=== PATIENT | female | born 1990 | race Asian ===

== ENCOUNTER 2018-04-18 05:10 | Inpatient (IN) | payer SELFPAY ==
[2018-04-17 13:49] LABS: EOSINOPHILS % (AUTO) 0.6 % (0.0-4.0); HEMOGLOBIN 10.3 g/dL (12.0-16.0); LYMPHOCYTES # (AUTO) 1.3 K/uL (1.0-5.5)
[2018-04-17 13:54] LABS: BASOPHILS % (AUTO) 0.5 % (0.0-2.0); HEMATOCRIT 32.7 % (36-48); LYMPHOCYTES % (AUTO) 18.9 % (20.5-51.5); MEAN CORPUSCULAR HEMOGLOBIN 26 pg (27-31); MEAN CORPUSCULAR HGB CONC 31 % (32-36); MEAN CORPUSCULAR VOLUME 84 fL (79.0-98.0); MONOCYTES # (AUTO) 0.6 K/uL (0.0-1.0); MONOCYTES % (AUTO) 8.3 % (1.7-9.3); RED CELL DISTRIBUTION WIDTH 14.5 % (9.0-15.0); WHITE BLOOD COUNT (AUTO) 6.9 K/uL (4.8-10.8)
[2018-04-17 14:29] LABS: PLATELET COUNT (AUTO) 210 K/uL (130-430)
[2018-04-17 14:30] LABS: NEUTROPHILS % (AUTO) 71.7 % (40.0-70.0)
[2018-04-17 14:31] LABS: BILIRUBIN,URINE NEGATIVE (NEGATIVE); BLOOD, URINE NEGATIVE (NEGATIVE); CLARITY/URINE CLEAR (CLEAR); COLOR,URINE YELLOW (YELLOW); GLUCOSE,URINE NEGATIVE (NEGATIVE); KETONES,URINE NEGATIVE (NEGATIVE); LEUKOCYTE ESTERASE ,URINE TRACE (NEGATIVE); NITRITE, URINE NEGATIVE (NEGATIVE); PH,URINE 6.5 (5.0-8.0); PROTEIN URINE NEGATIVE (NEGATIVE); UROBILINOGEN,URINE 0.2 (0.2-1.0)
[2018-04-17 14:47] LABS: BACTERIA,URINE FEW /HPF (None Seen); RBC,URINE 0-3 /HPF (0-3)
[~2018-04-18] VITALS: Ht 163 cm; Wt 75.3 kg
[2018-04-18] MEDS ORDERED: LR 1,000 ML IV SCH ×2 (05:23→11:42)
[2018-04-18] MEDS ORDERED: CEFAZOLIN 2 GM IVPB PREMIX 50 ML IV ONE ×2 (05:30→07:30)
[2018-04-18 07:06] VITALS: BP_SYST 119
[2018-04-18] MEDS ORDERED: NS 1000 ML IV.SOLN IV ONE (07:30)
[2018-04-18] MEDS ORDERED: MORPHINE SULFATE 10MG/10ML PF AMP EP ONE (07:30)
[2018-04-18] MEDS ORDERED: OXYTOCIN/0.9 % SODIUM CHLORIDE 20 UNITS/1,000 ML BAG IV ONE (07:30)
[2018-04-18] MEDS ORDERED: LR 1,000 ML IV.SOLN IV ONE (07:30)
[2018-04-18 08:43] VITALS: BP_SYST 118
[2018-04-18] MEDS ORDERED: KETOROLAC TROMETHAMINE 60 MG/2 ML VIAL IM PRN (08:45)
[2018-04-18] MEDS ORDERED: DIPHENHYDRAMINE INJ 50 MG/ML VIAL IVP PRN (08:45)
[2018-04-18] MEDS ORDERED: MORPHINE SULFATE 10MG/10ML PF AMP SP SCH (08:45)
[2018-04-18] MEDS ORDERED: ONDANSETRON HCL 4 MG/2 ML VIAL IVP PRN (08:45)
[2018-04-18] MEDS ORDERED: fentaNYL CITRATE/PF 100 MCG/2 ML AMP IVP PRN ×2 (08:45)
[2018-04-18] MEDS ORDERED: NALOXONE HCL 0.4 MG/ML AMP (NARCAN) IVP PRN ×2 (08:45)
[2018-04-18] MEDS ORDERED: NALBUPHINE HCL 10 MG/ML AMP IVP PRN (08:45)
[2018-04-18] MEDS ORDERED: fentaNYL CITRATE/PF 100 MCG/2 ML AMP ONE (09:45)
[2018-04-18] MEDS ORDERED: OXYTOCIN/0.9 % SODIUM CHLORIDE 1,000 ML IV ONE ×2 (10:09→11:42)
[2018-04-18] MEDS ORDERED: LANOLIN 7 GM OINT. TP PRN (11:45)
[2018-04-18] MEDS ORDERED: SENNOSIDES/DOCUSATE SODIUM 1 TAB TABLET(SENOKOT-S) PO PRN (11:45)
[2018-04-18] MEDS ORDERED: BISACODYL 10 MG/SUPPOSITORY RC PRN (11:45)
[2018-04-18] MEDS ORDERED: ANUSOL 1 EA SUPP.RECT (PREPARATION H) RC PRN (11:45)
[2018-04-18] MEDS: KETOROLAC TROMETHAMINE 30 MG VIAL IVP PRN ×2 (15:07→21:10)
[2018-04-18] MEDS: CEFAZOLIN 1 GM IVPB PREMIX 50 ML IV SCH ×2 (15:08→21:08)
[2018-04-18] MEDS: SIMETHICONE 80 MG TAB.CHEW PO PRN (17:30)
[2018-04-18] MEDS ORDERED: TEMAZEPAM 15 MG CAPSULE PO PRN (21:00)
[2018-04-19] MEDS: KETOROLAC TROMETHAMINE 30 MG VIAL IVP PRN (02:53)
[2018-04-19] MEDS: CEFAZOLIN 1 GM IVPB PREMIX 50 ML IV SCH (02:54)
[2018-04-19] MEDS: IBUPROFEN 600 MG TABLET PO SCH ×4 (06:00→23:36)
[2018-04-19 06:58] LABS: BASOPHILS % (AUTO) 0.4 % (0.0-2.0); EOSINOPHILS % (AUTO) 0.3 % (0.0-4.0); HEMATOCRIT 26.4 % (36-48); HEMOGLOBIN 8.7 g/dL (12.0-16.0); LYMPHOCYTES # (AUTO) 1.4 K/uL (1.0-5.5); LYMPHOCYTES % (AUTO) 11.5 % (20.5-51.5); MEAN CORPUSCULAR HEMOGLOBIN 27 pg (27-31); MEAN CORPUSCULAR HGB CONC 33 % (32-36); MEAN CORPUSCULAR VOLUME 84 fL (79.0-98.0); MONOCYTES # (AUTO) 0.7 K/uL (0.0-1.0); MONOCYTES % (AUTO) 6.3 % (1.7-9.3); NEUTROPHILS # (AUTO) 9.7 K/uL (1.8-7.7); NEUTROPHILS % (AUTO) 81.5 % (40.0-70.0); PLATELET COUNT (AUTO) 172 K/uL (130-430); RED BLOOD CELL COUNT(AUTO) 3.17 MIL/uL (4.2-6.2); RED CELL DISTRIBUTION WIDTH 14.7 % (9.0-15.0); WHITE BLOOD COUNT (AUTO) 11.8 K/uL (4.8-10.8)
[2018-04-19] MEDS: DOCUSATE SODIUM 100 MG CAPSULE PO PRN (12:46)
[2018-04-19] MEDS: SIMETHICONE 80 MG TAB.CHEW PO PRN (12:46)
[2018-04-20] MEDS: IBUPROFEN 600 MG TABLET PO SCH ×3 (05:48→12:00)
[2018-04-21] MEDS: DOCUSATE SODIUM 100 MG CAPSULE PO PRN
[2018-04-21] MEDS: SIMETHICONE 80 MG TAB.CHEW PO PRN (00:01)
[2018-04-21] MEDS: IBUPROFEN 600 MG TABLET PO SCH ×2 (06:02)
== END 2018-04-21 10:35 | disposition home or self-care (01) | DRG 786 ==
LOC: SPU 05:10
PROVIDERS: ADMIT Obstetrics & Gynecology; ATTEND Obstetrics & Gynecology
PROC: 10D00Z1 Extraction of Products of Conception, Low, Open Approach (ICD-10-PCS; principal; 2018-04-18 07:30)
DX: O26.62 Liver and biliary tract disorders in childbirth (principal); K83.1 Obstruction of bile duct; Z3A.37 37 weeks gestation of pregnancy; Z37.0 Single live birth
CPT/HCPCS: 36415; 81000-TC; 85025; 86886; 86900; 86901; 94760; J0690; J1885; J2274; J2590; J3010; J7030; J7120